=== PATIENT | female | born 1995 | race Caucasian/White ===

== ENCOUNTER 2016-10-17 15:18 | Emergency (ER) | payer OTHER ==
[~2016-10-17] VITALS: Ht 160 cm; Wt 74.0 kg
[2016-10-17 15:24] VITALS: BP 122/65; PULSE 80; RESP 16; TEMP 97.9; O2SAT 100
[2016-10-17] MEDS ORDERED: SODIUM CHLOR 0.9% 1000 ML INJ 1,000 ML IV SCH (15:44)
[2016-10-17] MEDS ORDERED: MORPHINE SULFATE 4 MG/ML INJ IV PUSH ONE (15:45)
[2016-10-17] MEDS ORDERED: ONDANSETRON HCL 4 MG/2 ML VIAL IVP ONE (15:45)
[2016-10-17] MEDS ORDERED: SODIUM CHLORIDE 0.9% FLUSH 5 ML FLUSH IVF PRN (15:45)
--- NOTE | 2016-10-17 15:47 | PD ---
HPI Chief Complaint: Abdominal Pain Time Seen by Provider: 15:44 Travel History International Travel<30 days: No Contact w/Intl Traveler<30days: No Traveled to known affect area: No History of Present Illness HPI 20-year-old female with history of no significant past medical issues, presents today with sudden onset of right lower quadrant abdominal pains or radiation to the right flank, nausea, vomiting starting at 2 PM. She denies any fevers, diarrhea, urinary symptoms, vaginal discharge, or any other symptoms. She states the pain is currently a 5 out of 10. Modifying Factors: None Associated Signs & Symptoms: Right lower quadrant and right flank pain, nausea and vomiting Risk Factors: None PFSH Past Medical History ?: Not LMP: 2 WEEKS Social History Alcohol Use: No Tobacco Use: No Substance Use: No Allergies-Medications (Allergen,Severity, Reaction): Coded Allergies: No Known Allergies (Unverified , 10/17/16) Reported Meds & Prescriptions Reported Meds & Active Scripts Active No Active Prescriptions or Reported Medications Review of Systems Except as stated in HPI: all other systems reviewed are Neg Physical Exam Narrative GENERAL: Well-nourished, well-developed young white female patient in mild distress. SKIN: Warm and dry. HEAD: Normocephalic. EYES: No scleral icterus. No injection or drainage. NECK: Supple, trachea midline. CARDIOVASCULAR: Regular rate and rhythm without murmurs, gallops, or rubs. RESPIRATORY: Breath sounds equal bilaterally. No accessory muscle use. GASTROINTESTINAL: Abdomen soft, right lower quadrant tenderness without guarding or rebound, nondistended. GENITOURINARY: Normal external genitalia without lesions or erythema. Vaginal vault without blood or drainage. Cervical os was closed without drainage. No cervical motion tenderness. Uterus nontender and nonenlarged. Bilateral adnexa nontender without masses. MUSCULOSKELETAL: No cyanosis, or edema. BACK: Nontender without obvious deformity. No CVA tenderness. Data Data Last Documented VS Vital Signs Date Time Temp Pulse Resp B/P Pulse Ox O2 Delivery O2 Flow Rate FiO2 10/17/16 18:28 73 20 90/65 100 10/17/16 15:24 97.9 Orders Complete Blood Count With Diff (10/17/16 15:44) Comprehensive Metabolic Panel (10/17/16 15:44) Urinalysis - C+S If Indicated (10/17/16 15:44) Ct Abd/Pel W/O Iv Contrast (10/17/16 15:44) Iv Access Insert/Monitor (10/17/16 15:44) Ecg Monitoring (10/17/16 15:44) Oximetry (10/17/16 15:44) Morphine Inj (Morphine Inj) (10/17/16 15:45) Ondansetron Inj (Zofran Inj) (10/17/16 15:45) Sodium Chlor 0.9% 1000 Ml Inj (Ns 1000 M (10/17/16 15:44) Sodium Chloride 0.9% Flush (Ns Flush) (10/17/16 15:45) Ed Urine Pregnancytest Poc (10/17/16 15:44) Ketorolac Inj (Toradol Inj) (10/17/16 18:00) Us Pelvis Comp Embroidery Machine Operator/Non-Preg (10/17/16 17:55) Gc And Chlamydia Pcr (10/17/16 18:21) Wet Prep Profile (10/17/16 18:21) Labs Laboratory Tests Test 10/17/16 10/17/16 16:10 18:20 White Blood Count 8.5 TH/MM3 Red Blood Count 4.55 MIL/MM3 Hemoglobin 13.2 GM/DL Hematocrit 39.3 % Mean Corpuscular Volume 86.4 FL Mean Corpuscular Hemoglobin 29.0 PG Mean Corpuscular Hemoglobin 33.5 % Concent Red Cell Distribution Width 11.4 % Platelet Count 317 TH/MM3 Mean Platelet Volume 7.8 FL Neutrophils (%) (Auto) 65.1 % Lymphocytes (%) (Auto) 26.4 % Monocytes (%) (Auto) 7.0 % Eosinophils (%) (Auto) 1.1 % Basophils (%) (Auto) 0.4 % Neutrophils # (Auto) 5.6 TH/MM3 Lymphocytes # (Auto) 2.2 TH/MM3 Monocytes # (Auto) 0.6 TH/MM3 Eosinophils # (Auto) 0.1 TH/MM3 Basophils # (Auto) 0.0 TH/MM3 CBC Comment DIFF FINAL Differential Comment Urine Color YELLOW Urine Turbidity CLOUDY Urine pH 6.0 Urine Specific [place] 1.031 Urine Protein NEG mg/dL Urine Glucose (UA) NEG mg/dL Urine Ketones NEG mg/dL Urine Occult Blood NEG Urine Nitrite NEG Urine Bilirubin NEGATIVE Urine Leukocyte Esterase NEGATIVE Urine RBC 0-3 /hpf Urine WBC 3-5 /hpf Urine Squamous Epithelial > 8 /hpf Cells Urine Bacteria FEW /hpf Microscopic Urinalysis Comment CULT NOT INDICATED Sodium Level 141 MEQ/L Potassium Level 3.6 MEQ/L Chloride Level 107 MEQ/L Carbon Dioxide Level 26.8 MEQ/L Anion Gap 7 MEQ/L Blood Urea Nitrogen 20 MG/DL Creatinine 0.78 MG/DL Estimat Glomerular Filtration 92 ML/MIN Rate Random Glucose 76 MG/DL Calcium Level 8.4 MG/DL Total Bilirubin 0.2 MG/DL Aspartate Amino Transf 6 U/L (AST/SGOT) Alanine Aminotransferase 18 U/L (ALT/SGPT) Alkaline Phosphatase 64 U/L Total Protein 6.9 GM/DL Albumin 3.6 GM/DL Clue Cells (Wet Prep) NONE SEEN Vaginal Trichomonas (Wet Prep) NONE SEEN Vaginal Yeast (Wet Prep) NONE SEEN MDM Medical Decision Making Medical Screen Exam Complete: Yes Emergency Medical Condition: Yes Medical Record Reviewed: Yes Interpretation(s) Laboratory Tests Test 10/17/16 16:10 Red Cell Distribution Width 11.4 % (11.6-17.2) Urine Turbidity CLOUDY (CLEAR) Urine Squamous Epithelial > 8 /hpf (0-5) Cells Urine Bacteria FEW /hpf (NONE) Blood Urea Nitrogen 20 MG/DL (7-18) Calcium Level 8.4 MG/DL (8.5-10.1) Aspartate Amino Transf 6 U/L (15-37) (AST/SGOT) Last 24 hours Impressions Abdomen/Pelvis CT 10/17/16 1544 Signed Impressions: Service Date/Time: Monday, October 17, 2016 17:15 - CONCLUSION: Normal kidneys ureters and bladder with no evidence of renal or ureteral calculi. Anteverted uterus right-sided. Normal left ovary. Otherwise negative examination Addison Montano MD Differential Diagnosis Right lower quadrant abdominal pains and right flank painsrenal colic versus pyelonephritis versus musculoskeletal versus appendicitis versus cholecystitis versus ovarian cyst versus ovarian torsion Narrative Course Lab work did not indicate any signs of sepsis and UA did not show significant signs of infection. CAT scan shows no signs of renal colic or any signs of acute intra-abdominal processes. However, patient is continuing to have fairly low right pelvic pains. A pelvic was done which did not show significant signs of CMT or discharge. Ultrasound was ordered for further evaluation of the right adnexa. Physician Communication Physician Communication Case is signed out to Dr. Gonzalez at 7 PM pending ultrasound. Disposition based on ultrasound. Diagnosis Primary Impression: Right lower quadrant abdominal pain Scripts No Active Prescriptions or Reported Meds Condition: Stable Zahida Weston MD Oct 17, 2016 15:47
[2016-10-17 16:23] VITALS: BP 105/68; PULSE 72; RESP 20; O2SAT 100
[2016-10-17 16:23] LABS: AUTOMATED NEUTROPHIL # 5.6 TH/MM3 (1.8-7.7); BASOPHIL % 0.4 % (0.0-2.0); EOSINOPHIL # 0.1 TH/MM3 (0-0.4); EOSINOPHIL % 1.1 % (0.0-4.0); HEMATOCRIT 39.3 % (35.0-46.0); HEMO FLAGS DIFF FINAL; LYMPH % 26.4 % (9.0-44.0); LYMPHOCYTE # 2.2 TH/MM3 (1.0-4.8); MEAN CELL VOLUME 86.4 FL (80.0-100.0); MEAN CORPUSCULAR HGB CONC 33.5 % (32.0-36.0); NEUT % 65.1 % (16.0-70.0); PLATELET COUNT 317 TH/MM3 (150-450); RED BLOOD COUNT 4.55 MIL/MM3 (4.00-5.30); RED CELL DISTRIBUTION WIDTH 11.4 % (11.6-17.2); WHITE BLOOD COUNT 8.5 TH/MM3 (4.0-11.0)
[2016-10-17 16:36] LABS: URINE COLOR YELLOW (YELLW/STRAW)
[2016-10-17 16:37] LABS: BLOOD, URINE NEG (NEG); GLUCOSE,URINE NEG (NEG); KETONE, URINE NEG (NEG); NITRITE,URINE NEG (NEG)
[2016-10-17 16:40] LABS: RBC, URINE 0-3 /hpf (0-3)
[2016-10-17 16:41] LABS: BACTERIA, URINE FEW /hpf; COMMENT (UR) CULT NOT INDICATED; CULTURE IF INDICATED CULT NOT INDICATED; SQUAMOUS EPITHELIAL CELL URINE > 8 /hpf (0-5)
[2016-10-17 17:14] VITALS: BP 116/58; PULSE 76; RESP 20; O2SAT 97
[2016-10-17 17:16] LABS: CHLORIDE 107 MEQ/L (98-107); POTASSIUM 3.6 MEQ/L (3.5-5.1); SODIUM (NA) 141 MEQ/L (136-145)
[2016-10-17 17:19] LABS: ANION GAP 7 MEQ/L (5-15); BICARBONATE 26.8 MEQ/L (21.0-32.0)
[2016-10-17 17:20] LABS: BLOOD UREA NITROGEN 20 MG/DL (7-18)
[2016-10-17 17:22] LABS: ALT (GPT) 18 U/L (10-53); AST (GOT) 6 U/L (15-37)
[2016-10-17 17:23] LABS: GLOMERULAR FILTRATION RATE 92 ML/MIN (>89)
[2016-10-17 17:24] LABS: TOTAL BILIRUBIN ADULT 0.2 MG/DL (0.2-1.0)
[2016-10-17 17:25] LABS: ALKALINE PHOSPHATASE 64 U/L (45-117)
--- NOTE | 2016-10-17 17:44 | RADHPO ---
EXAM DATE/TIME: 10/17/2016 17:15 [facility] COMPARISON: No previous studies available for comparison. INDICATIONS : Right lower quadrant pain radiating into the back. ORAL CONTRAST: No oral contrast ingested. RADIATION DOSE: 14.68 CTDIvol (mGy) MEDICAL HISTORY : None SURGICAL HISTORY : None. ENCOUNTER: Initial ACUITY: 1 day PAIN SCALE: 5/10 LOCATION: Right lower quadrant TECHNIQUE: Volumetric scanning of the abdomen and pelvis was performed. Using automated exposure control and ad justment of the mA and/or kV according to patient size, radiation dose was kept as low as reasonably achievable to obtain optimal diagnostic quality images. FINDINGS: LOWER LUNGS: The visualized lower lungs are clear. LIVER: Homogeneous density without lesion. There is no dilation of the biliary tree. No calcified gallston es. Gallbladder seen as a luminal structure without wall thickening There SPLEEN: Normal size without lesion. PANCREAS: Within normal limits. KIDNEYS: Normal in size and shape. There is no mass, stone, or hydronephrosis. ADRENAL GLANDS: Within normal limits. VASCULAR: There is no aortic aneurysm. BOWEL/MESENTERY: The stomach, small bowel, and colon demonstrate no acute abnormality. There is no free intraperitone al air or fluid. ABDOMINAL WALL: Within normal limits. RETROPERITONEUM: There is no lymphadenopathy. BLADDER: No wall thickening or mass. REPRODUCTIVE: Uterus is anteverted to the right. Left ovary visualized and normal. INGUINAL: There is no lymphadenopathy or hernia. MUSCULOSKELETAL: Within normal limits for patient age. CONCLUSION: Normal kidneys ureters and bladder with no evidence of renal or ureteral calculi. Anteverted uterus r ight-sided. Normal left ovary. Otherwise negative examination Addison Montano MD on October 17, 2016 at 17:39 Board Certified Radiologist. This report was verified electronically.
[2016-10-17] MEDS ORDERED: KETOROLAC TROMETHAMINE 30 MG/ML (IVP) VIAL IV PUSH ONE (18:00)
[2016-10-17 18:28] VITALS: BP 90/65; PULSE 73; RESP 20; O2SAT 100
--- NOTE | 2016-10-17 19:15 | PD ---
Physical Exam Date Seen by Provider: Oct 17, 2016 Time Seen by Provider: 19:15 Narrative accepted in transfer of care from Dr Weston GENERAL: Well-developed and nourished female in no acute distress no respiratory distress CARDIOVASCULAR: Regular rate and rhythm without murmurs, gallops, or rubs. RESPIRATORY: Breath sounds equal bilaterally. No accessory muscle use. GASTROINTESTINAL: Abdomen soft, mild tenderness to palpation no guarding or rebound, nondistended. Data Data Last Documented VS Vital Signs Date Time Temp Pulse Resp B/P Pulse Ox O2 Delivery O2 Flow Rate FiO2 10/17/16 19:13 18 10/17/16 18:28 73 90/65 100 10/17/16 15:24 97.9 Orders Complete Blood Count With Diff (10/17/16 15:44) Comprehensive Metabolic Panel (10/17/16 15:44) Urinalysis - C+S If Indicated (10/17/16 15:44) Ct Abd/Pel W/O Iv Contrast (10/17/16 15:44) Iv Access Insert/Monitor (10/17/16 15:44) Ecg Monitoring (10/17/16 15:44) Oximetry (10/17/16 15:44) Morphine Inj (Morphine Inj) (10/17/16 15:45) Ondansetron Inj (Zofran Inj) (10/17/16 15:45) Sodium Chlor 0.9% 1000 Ml Inj (Ns 1000 M (10/17/16 15:44) Sodium Chloride 0.9% Flush (Ns Flush) (10/17/16 15:45) Ed Urine Pregnancytest Poc (10/17/16 15:44) Ketorolac Inj (Toradol Inj) (10/17/16 18:00) Gc And Chlamydia Pcr (10/17/16 18:21) Wet Prep Profile (10/17/16 18:21) Us Pelvis Comp W Doppler (10/17/16 17:55) Ns (Bolus) Inj (10/17/16 19:45) Labs Laboratory Tests Test 10/17/16 10/17/16 16:10 18:20 White Blood Count 8.5 TH/MM3 Red Blood Count 4.55 MIL/MM3 Hemoglobin 13.2 GM/DL Hematocrit 39.3 % Mean Corpuscular Volume 86.4 FL Mean Corpuscular Hemoglobin 29.0 PG Mean Corpuscular Hemoglobin 33.5 % Concent Red Cell Distribution Width 11.4 % Platelet Count 317 TH/MM3 Mean Platelet Volume 7.8 FL Neutrophils (%) (Auto) 65.1 % Lymphocytes (%) (Auto) 26.4 % Monocytes (%) (Auto) 7.0 % Eosinophils (%) (Auto) 1.1 % Basophils (%) (Auto) 0.4 % Neutrophils # (Auto) 5.6 TH/MM3 Lymphocytes # (Auto) 2.2 TH/MM3 Monocytes # (Auto) 0.6 TH/MM3 Eosinophils # (Auto) 0.1 TH/MM3 Basophils # (Auto) 0.0 TH/MM3 CBC Comment DIFF FINAL Differential Comment Urine Color YELLOW Urine Turbidity CLOUDY Urine pH 6.0 Urine Specific [place] 1.031 Urine Protein NEG mg/dL Urine Glucose (UA) NEG mg/dL Urine Ketones NEG mg/dL Urine Occult Blood NEG Urine Nitrite NEG Urine Bilirubin NEGATIVE Urine Leukocyte Esterase NEGATIVE Urine RBC 0-3 /hpf Urine WBC 3-5 /hpf Urine Squamous Epithelial > 8 /hpf Cells Urine Bacteria FEW /hpf Microscopic Urinalysis Comment CULT NOT INDICATED Sodium Level 141 MEQ/L Potassium Level 3.6 MEQ/L Chloride Level 107 MEQ/L Carbon Dioxide Level 26.8 MEQ/L Anion Gap 7 MEQ/L Blood Urea Nitrogen 20 MG/DL Creatinine 0.78 MG/DL Estimat Glomerular Filtration 92 ML/MIN Rate Random Glucose 76 MG/DL Calcium Level 8.4 MG/DL Total Bilirubin 0.2 MG/DL Aspartate Amino Transf 6 U/L (AST/SGOT) Alanine Aminotransferase 18 U/L (ALT/SGPT) Alkaline Phosphatase 64 U/L Total Protein 6.9 GM/DL Albumin 3.6 GM/DL Clue Cells (Wet Prep) NONE SEEN Vaginal Trichomonas (Wet Prep) NONE SEEN Vaginal Yeast (Wet Prep) NONE SEEN MDM Medical Record Reviewed: Yes Supervised Visit with FABIÁN: No Interpretation(s) Laboratory Tests Test 10/17/16 10/17/16 16:10 18:20 White Blood Count 8.5 TH/MM3 Red Blood Count 4.55 MIL/MM3 Hemoglobin 13.2 GM/DL Hematocrit 39.3 % Mean Corpuscular Volume 86.4 FL Mean Corpuscular Hemoglobin 29.0 PG Mean Corpuscular Hemoglobin 33.5 % Concent Red Cell Distribution Width 11.4 % Platelet Count 317 TH/MM3 Mean Platelet Volume 7.8 FL Neutrophils (%) (Auto) 65.1 % Lymphocytes (%) (Auto) 26.4 % Monocytes (%) (Auto) 7.0 % Eosinophils (%) (Auto) 1.1 % Basophils (%) (Auto) 0.4 % Neutrophils # (Auto) 5.6 TH/MM3 Lymphocytes # (Auto) 2.2 TH/MM3 Monocytes # (Auto) 0.6 TH/MM3 Eosinophils # (Auto) 0.1 TH/MM3 Basophils # (Auto) 0.0 TH/MM3 CBC Comment DIFF FINAL Differential Comment Urine Color YELLOW Urine Turbidity CLOUDY Urine pH 6.0 Urine Specific [place] 1.031 Urine Protein NEG mg/dL Urine Glucose (UA) NEG mg/dL Urine Ketones NEG mg/dL Urine Occult Blood NEG Urine Nitrite NEG Urine Bilirubin NEGATIVE Urine Leukocyte Esterase NEGATIVE Urine RBC 0-3 /hpf Urine WBC 3-5 /hpf Urine Squamous Epithelial > 8 /hpf Cells Urine Bacteria FEW /hpf Microscopic Urinalysis Comment CULT NOT INDICATED Sodium Level 141 MEQ/L Potassium Level 3.6 MEQ/L Chloride Level 107 MEQ/L Carbon Dioxide Level 26.8 MEQ/L Anion Gap 7 MEQ/L Blood Urea Nitrogen 20 MG/DL Creatinine 0.78 MG/DL Estimat Glomerular Filtration 92 ML/MIN Rate Random Glucose 76 MG/DL Calcium Level 8.4 MG/DL Total Bilirubin 0.2 MG/DL Aspartate Amino Transf 6 U/L (AST/SGOT) Alanine Aminotransferase 18 U/L (ALT/SGPT) Alkaline Phosphatase 64 U/L Total Protein 6.9 GM/DL Albumin 3.6 GM/DL Clue Cells (Wet Prep) NONE SEEN Vaginal Trichomonas (Wet Prep) NONE SEEN Vaginal Yeast (Wet Prep) NONE SEEN Last Impressions Pelvis Ultrasound 10/17/16 1755 Signed Impressions: Service Date/Time: Monday, October 17, 2016 18:38 - CONCLUSION: Normal examination. Zaheer Tabor Jr., MD Abdomen/Pelvis CT 10/17/16 1544 Signed Impressions: Service Date/Time: Monday, October 17, 2016 17:15 - CONCLUSION: Normal kidneys ureters and bladder with no evidence of renal or ureteral calculi. Anteverted uterus right-sided. Normal left ovary. Otherwise negative examination Addison Montano MD Differential Diagnosis accepted in transfer of care from Dr Weston; please refer to her dictation Narrative Course accepted in transfer of care from Dr Weston 7:35 PM ultrasound of pelvis ovaries with Doppler study found to be normal imaging study discussed with radiology and reports good flow to both ovaries. At this point in time patient's labs are normal CT abdomen and pelvis reveals no acute abnormality and is read as normal and ultrasound of the pelvis with attention to the right hemipelvis and right ovary is found to be normal. Patient is 2 weeks status post last. Suspect possible mittelschmerz component to right lower quadrant pelvic pain. Patient is clinically improved after receiving Toradol and 1 dose of morphine in the emergency department patient is stable for outpatient management and encouraged to follow closely with her systems architecture analyst. Patient will be given prescription for Anaprox DS. Patient noted to have some decrease in blood pressure after receiving narcotics IV will be given a liter of normal saline and encouraged to take oral hydration prior to discharge. Diagnosis Primary Impression: Right lower quadrant abdominal pain Additional Impression: Mittelschmerz Referrals: Health Navigator call for appointment Patient Instructions: General Instructions Additional Instruction: Increase fluid hydration Follow-up with systems architecture analyst No work times one day Monitor temperature and take as needed acetaminophen/Tylenol every 4 hours for fever 100.4F or greater Take Anaprox DS as prescribed as needed for pain associated with inflammation/ pelvic pain Return to the emergency department for any concerns or change in condition Med/Other Pt SpecificInfo: Prescription(s) given Scripts Naproxen Sodium DS (Anaprox DS)550 Mg [id number] Mg PO BID PRN (PAIN GREATER THAN 6 ) #10 TAB Ref 0 Prov:Katie Gonzalez MD 10/17/16 Disposition: 01 DISCHARGE HOME Condition: Stable Katie Gonzlaez MD Oct 17, 2016 19:15
--- NOTE | 2016-10-17 19:16 | RADHPO ---
EXAM DATE/TIME: 10/17/2016 18:38 [facility] COMPARISON: No previous studies available for comparison. INDICATIONS : Pelvic pain. MEDICAL HISTORY : Right pelvic and flank pain. Nausea/vomiting. SURGICAL HISTORY : None. ENCOUNTER: Initial ACUITY: 1 day PAIN SCORE: 8/10 LOCATION: Bilateral pelvis MEASUREMENTS: UTERUS: 8.2 x 6.2 x 3.2 cm ENDOMETRIAL STRIPE: 13 mm RIGHT OVARY: 2.5 x 2.4 x 2.9 cm LEFT OVARY: 4.3 x 2.9 x 2.4 cm FINDINGS: UTERUS: The myometrium has homogeneous echotexture without mass. RIGHT OVARY: Ovary contains no mass or significant cystic lesion. LEFT OVARY: Ovary contains no mass or significant cystic lesion. MISCELLANEOUS: No free fluid. CONCLUSION: Normal examination. Zaheer Tabor Jr., MD on October 17, 2016 at 19:13 Board Certified Radiologist. This report was verified electronically.
[2016-10-17] MEDS ORDERED: NAPR550 PO (19:39)
[2016-10-17] MEDS ORDERED: SODIUM CHLOR 0.9% 1000 ML INJ 1,000 ML IV ONE (19:45)
[2016-10-17 20:33] VITALS: BP 102/65; PULSE 83; RESP 18; O2SAT 98
[2016-10-18 03:50] LABS: CHLAMYDIA PCR NOT DETECTED (NOT DETECT); NEISSERIA PCR NOT DETECTED (NOT DETECT)
== END 2016-10-17 20:44 | disposition home or self-care (01) ==
LOC: PHED 15:18
DX: N94.0 Mittelschmerz (principal)
CPT/HCPCS: 74176; 76856; 80053; 81001; 84703; 85025; 87210; 87491; 87591; 93975; 96361; 96374; 96375; 99284; J1885; J2270; J2405; J7030

== ENCOUNTER 2016-10-28 04:25 | Emergency (ER) | payer OTHER ==
[~2016-10-28] VITALS: Ht 160 cm; Wt 72.9 kg
[~2016-10-28 04:25] MED LIST: NAPR550 PO
[2016-10-28 04:31] VITALS: BP 115/79; PULSE 98; RESP 18; TEMP 97.6; O2SAT 98
[2016-10-28] MEDS ORDERED: SODIUM CHLOR 0.9% 1000 ML INJ 1,000 ML IV SCH (04:50)
[2016-10-28 05:00] VITALS: RESP 18; O2SAT 99
[2016-10-28] MEDS ORDERED: SODIUM CHLOR 0.9% 1000 ML INJ 1,000 ML IV ONE (05:00)
[2016-10-28] MEDS ORDERED: PANTOPRAZOLE SODIUM 40 MG VIAL IVP ONE (05:00)
[2016-10-28] MEDS ORDERED: ONDANSETRON HCL 4 MG/2 ML VIAL IVP ONE (05:00)
[2016-10-28] MEDS ORDERED: SODIUM CHLORIDE 0.9% FLUSH 5 ML FLUSH IVF PRN (05:00)
[2016-10-28 05:11] LABS: BLOOD, URINE NEG (NEG); GLUCOSE,URINE NEG (NEG); KETONE, URINE NEG (NEG); NITRITE,URINE NEG (NEG)
[2016-10-28 05:15] LABS: AUTOMATED NEUTROPHIL # 5.7 TH/MM3 (1.8-7.7); BASOPHIL # 0.1 TH/MM3 (0-0.2); EOSINOPHIL % 0.3 % (0.0-4.0); HEMATOCRIT 38.9 % (35.0-46.0); LYMPH % 23.6 % (9.0-44.0); LYMPHOCYTE # 1.9 TH/MM3 (1.0-4.8); MEAN CELL VOLUME 85.1 FL (80.0-100.0); MEAN CORPUSCULAR HEMOGLOBIN 28.6 PG (27.0-34.0); MEAN CORPUSCULAR HGB CONC 33.6 % (32.0-36.0); MONO % 4.5 % (0.0-8.0); NEUT % 70.6 % (16.0-70.0); PLATELET COUNT 281 TH/MM3 (150-450); RED BLOOD COUNT 4.58 MIL/MM3 (4.00-5.30); RED CELL DISTRIBUTION WIDTH 11.5 % (11.6-17.2); WHITE BLOOD COUNT 8.1 TH/MM3 (4.0-11.0)
[2016-10-28] MEDS ORDERED: ONDANSETRON HCL 4 MG/2 ML VIAL IV PUSH ONE (05:15)
[2016-10-28 05:16] LABS: HEMO FLAGS DIFF FINAL
[2016-10-28 05:18] LABS: BACTERIA, URINE RARE /hpf; COMMENT (UR) CULT NOT INDICATED; CULTURE IF INDICATED CULT NOT INDICATED; RBC, URINE 0-2 /hpf (0-3); SQUAMOUS EPITHELIAL CELL URINE > 8 /hpf (0-5); URINE COLOR YELLOW (YELLW/STRAW); WBC, URINE 0-2 /hpf (0-5)
[2016-10-28 05:19] LABS: CHLORIDE 107 MEQ/L (98-107); POTASSIUM 3.6 MEQ/L (3.5-5.1); SODIUM (NA) 142 MEQ/L (136-145)
[2016-10-28 05:22] LABS: ANION GAP 9 MEQ/L (5-15); BICARBONATE 25.6 MEQ/L (21.0-32.0)
[2016-10-28 05:23] LABS: BLOOD UREA NITROGEN 13 MG/DL (7-18); MAGNESIUM 2.2 MG/DL (1.5-2.5)
[2016-10-28 05:25] LABS: ALT (GPT) 22 U/L (10-53); AST (GOT) 16 U/L (15-37); GLOMERULAR FILTRATION RATE 97 ML/MIN (>89)
[2016-10-28 05:27] LABS: TOTAL BILIRUBIN ADULT 0.6 MG/DL (0.2-1.0)
[2016-10-28 05:28] LABS: ALKALINE PHOSPHATASE 60 U/L (45-117)
[2016-10-28] MEDS ORDERED: METOCLOPRAMIDE HCL 10 MG/2 ML VIAL IV PUSH ONE (05:30)
[2016-10-28] MEDS ORDERED: MORPHINE SULFATE 4 MG/ML INJ IV PUSH ONE (05:30)
--- NOTE | 2016-10-28 05:36 | PD ---
HPI Chief Complaint: Alcohol/Drug Intoxication Time Seen by Provider: 04:50 Travel History International Travel<30 days: No Contact w/Intl Traveler<30days: No Traveled to known affect area: No History of Present Illness HPI 21 year-old female presents to the emergency department by private transportation for complaint of vomiting with epigastric pain. Patient reportedly drank alcohol last evening and access for her she typically does not drink alcoholic beverages. Patient subsequently drank water to try to dilute the alcohol and went to bed and awakened just prior to arrival to the emergency department with multiple episodes of vomiting. Patient vomited stomach contents of food. No report of bilious emesis, hematemesis, or coffee-ground emesis, and no melena or hematochezia but some loose stools. Patient also with epigastric discomfort. No prior history of peptic ulcer disease gastritis pancreatitis and no gallbladder disease. Patient rates discomfort 9/10 in intensity. Patient is taking no medications prior to arrival to the emergency department. Patient takes no medications on a regular basis. Patient is reportedly otherwise in good health. No abdominal surgeries. Last menstrual period was 1 month ago normal for her and patient denies . [facility] Past Medical History Narrative Medical Negative medical history and surgical history occasional alcohol use no tobacco use nursing notes reviewed Medical History: Denies Significant Hx Diminished Hearing: No Tetanus Vaccination: Unknown Influenza Vaccination: No ?: Not LMP: 10/07/16 Past Surgical History Surgical History: No Previous Surgery Social History Alcohol Use: Yes (SOCIALLY) Tobacco Use: No Substance Use: No Allergies-Medications (Allergen,Severity, Reaction): Coded Allergies: No Known Allergies (Unverified , 10/29/16) Reported Meds & Prescriptions Reported Meds & Active Scripts Active Phenergan (Promethazine HCl) 25 Mg Tab 25 Mg PO Q6H PRN Zofran Odt (Ondansetron Odt) 4 Mg Tab 4 Mg SL Q6HR PRN Carafate Liq (Sucralfate) 1 Gm/10 Ml Susp 1 Gm PO QID 2 Days on empty stomach Anaprox DS (Naproxen Sodium) 550 Mg Tab 550 Mg PO BID PRN Review of Systems Except as stated in HPI: all other systems reviewed are Neg General / Constitutional: No: Fever, Chills HENT: No: Congestion Cardiovascular: No: Chest Pain or Discomfort Respiratory: No: Shortness of Breath Gastrointestinal: Positive: Nausea, Vomiting, Diarrhea, Abdominal Pain, No: Hematemesis, Hematochezia, Loss of Appetite Genitourinary: No: Urgency, Frequency, Dysuria Musculoskeletal: No: Myalgias, Arthralgias Skin: No Rash Neurologic: No: Weakness Psychiatric: Positive: Anxiety Hematologic/Lymphatic: No: Easy Bruising Physical Exam Narrative GENERAL: Well-developed well-nourished female in no respiratory distress appears mildly anxious SKIN: Warm and dry. HEAD: Normocephalic. EYES: No scleral icterus. No injection or drainage. NECK: Supple, trachea midline. No JVD or lymphadenopathy. CARDIOVASCULAR: Regular rate and rhythm without murmurs, gallops, or rubs. RESPIRATORY: Breath sounds equal bilaterally. No accessory muscle use. GASTROINTESTINAL: Abdomen soft, mild epigastric tenderness to direct palpation without guarding or rebound, nondistended. MUSCULOSKELETAL: No cyanosis, or edema. BACK: Nontender without obvious deformity. No CVA tenderness. Data Data Last Documented VS Orders Complete Blood Count With Diff (10/28/16 04:50) Comprehensive Metabolic Panel (10/28/16 04:50) Lipase (10/28/16 04:50) Urinalysis - C+S If Indicated (10/28/16 04:50) Iv Access Insert/Monitor (10/28/16 04:50) Ecg Monitoring (10/28/16 04:50) Oximetry (10/28/16 04:50) Ondansetron Inj (Zofran Inj) (10/28/16 05:00) Pantoprazole Inj (Protonix Inj) (10/28/16 05:00) Sodium Chlor 0.9% 1000 Ml Inj (Ns 1000 M (10/28/16 04:50) Sodium Chloride 0.9% Flush (Ns Flush) (10/28/16 05:00) Chest, Single Ap (10/28/16 04:50) Ed Urine Pregnancytest Poc (10/28/16 04:50) Alcohol (Ethanol) (10/28/16 04:50) Sodium Chlor 0.9% 1000 Ml Inj (Ns 1000 M (10/28/16 05:00) Magnesium (Mg) (10/28/16 04:50) Ondansetron Inj (Zofran Inj) (10/28/16 05:15) Metoclopramide Inj (Reglan Inj) (10/28/16 05:30) Morphine Inj (Morphine Inj) (10/28/16 05:30) Sucralfate Liq (Carafate Liq) (10/28/16 06:45) Labs Laboratory Tests Test 10/28/16 05:00 White Blood Count 8.1 TH/MM3 Red Blood Count 4.58 MIL/MM3 Hemoglobin 13.1 GM/DL Hematocrit 38.9 % Mean Corpuscular Volume 85.1 FL Mean Corpuscular Hemoglobin 28.6 PG Mean Corpuscular Hemoglobin 33.6 % Concent Red Cell Distribution Width 11.5 % Platelet Count 281 TH/MM3 Mean Platelet Volume 8.3 FL Neutrophils (%) (Auto) 70.6 % Lymphocytes (%) (Auto) 23.6 % Monocytes (%) (Auto) 4.5 % Eosinophils (%) (Auto) 0.3 % Basophils (%) (Auto) 1.0 % Neutrophils # (Auto) 5.7 TH/MM3 Lymphocytes # (Auto) 1.9 TH/MM3 Monocytes # (Auto) 0.4 TH/MM3 Eosinophils # (Auto) 0.0 TH/MM3 Basophils # (Auto) 0.1 TH/MM3 CBC Comment DIFF FINAL Differential Comment Urine Color YELLOW Urine Turbidity CLEAR Urine pH 7.0 Urine Specific [place] 1.026 Urine Protein TRACE mg/dL Urine Glucose (UA) NEG mg/dL Urine Ketones NEG mg/dL Urine Occult Blood NEG Urine Nitrite NEG Urine Bilirubin NEG Urine Leukocyte Esterase NEG Urine RBC 0-2 /hpf Urine WBC 0-2 /hpf Urine Squamous Epithelial > 8 /hpf Cells Urine Bacteria RARE /hpf Microscopic Urinalysis Comment CULT NOT INDICATED Sodium Level 142 MEQ/L Potassium Level 3.6 MEQ/L Chloride Level 107 MEQ/L Carbon Dioxide Level 25.6 MEQ/L Anion Gap 9 MEQ/L Blood Urea Nitrogen 13 MG/DL Creatinine 0.74 MG/DL Estimat Glomerular Filtration 97 ML/MIN Rate Random Glucose 88 MG/DL Calcium Level 8.8 MG/DL Magnesium Level 2.2 MG/DL Total Bilirubin 0.6 MG/DL Aspartate Amino Transf 16 U/L (AST/SGOT) Alanine Aminotransferase 22 U/L (ALT/SGPT) Alkaline Phosphatase 60 U/L Total Protein 7.6 GM/DL Albumin 3.8 GM/DL Lipase 145 U/L Ethyl Alcohol Level LESS THAN 3 MG/DL MDM Medical Decision Making Medical Screen Exam Complete: Yes Emergency Medical Condition: Yes Medical Record Reviewed: Yes Interpretation(s) CBC & BMP Diagram 10/28/16 05:00 [id number] hCG: Negative Urinalysis normal Serum alcohol less than 3, not elevated Last Impressions Chest X-Ray 10/28/16 0450 Signed Impressions: Service Date/Time: Friday, October 28, 2016 05:14 - CONCLUSION: No acute cardiopulmonary abnormality is identified. Michael Perry MD Differential Diagnosis Vomiting, gastroenteritis, peptic ulcer disease, alcoholic gastritis, electrolyte disturbance, dehydration Narrative Course IV access obtained specimens collected and sent for resulting patient administered normal saline bolus 1 L as well as Zofran 4 mg IV and Protonix 40 mg IV Patient with ongoing nausea additional dose of Zofran 4 mg IV administered and second liter of normal saline administered CBC complete metabolic panel lipase magnesium urinalysis all within normal range ; [id number] hCG negative; chest x-ray reveals no subdiaphragmatic free air or Patient continues to complain of nausea Reglan 10 mg IV administered also morphine sulfate 2 mg IV administered At 6:40 AM patient is clinically improved and stable for outpatient management continues complaining of some mild epigastric tenderness therefore it Carafate 1 g administered Diagnosis Primary Impression: Gastritis Qualified Code: K29.00 - Acute gastritis without hemorrhage, unspecified gastritis type Additional Impression: Vomiting Qualified Code: R11.2 - Non-intractable vomiting with nausea, unspecified vomiting type Referrals: Primary Care Physician 2 days Patient Instructions: General Instructions, Narcotic given in the ED Additional Instructions: Follow a clear liquid diet for next 12-24 hours advance as tolerated to bland/ Kym diet then regular diet Increase fluid hydration Take medication as prescribed as needed for nausea and/or vomiting Monitor temperature every 4 hours with thermometer take acetaminophen as needed for fever 100.4F or greater Avoid nonsteroidal anti-inflammatory medications such as ibuprofen/Advil/Motrin or Aleve/Naprosyn/naproxen 24 hours Return to the emergency for for any concerns or change in condition Med/Other Pt SpecificInfo: Prescription(s) given Scripts Promethazine (Phenergan)25 Mg Tab25 Mg PO Q6H PRN (Nausea/Vomiting) #7 TAB Ref 0 Prov:Katie Gonzalez MD 10/28/16 Ondansetron Odt (Zofran Odt)4 Mg Tab4 Mg SL Q6HR PRN (Nausea/Vomiting) #10 TAB Ref 0 Prov:Katie Gonzalez MD 10/28/16 Sucralfate Liq (Carafate Liq)1 Gm/10 Ml Susp1 Gm PO QID 2 Days Ref 0 on empty stomach Prov:Katie Gonzalez MD 10/28/16 Disposition: DISCHARGE HOME Condition: Stable Katie Gonzalez MD Oct 28, 2016 05:36 Promethazine (Phenergan)25 Mg Tab25 Mg PO Q6H PRN (Nausea/Vomiting) #7 TAB Ref 0 Prov:Katie Gonzalez MD 10/28/16 Ondansetron Odt (Zofran Odt)4 Mg Tab4 Mg SL Q6HR PRN (Nausea/Vomiting) #10 TAB Ref 0 Prov:Katie Gonzalez MD 10/28/16 Sucralfate Liq (Carafate Liq)1 Gm/10 Ml Susp1 Gm PO QID 2 Days Ref 0 on empty stomach Prov:Katie Gonzalez MD 10/28/16 Disposition: DISCHARGE HOME Condition: Stable Katie Gonzalez MD Oct 28, 2016 05:36
--- NOTE | 2016-10-28 05:56 | RADHPO ---
EXAM DATE/TIME: 10/28/2016 05:14 [place] COMPARISON: No previous studies available for comparison. INDICATIONS : Shortness of breath. MEDICAL HISTORY : None. SURGICAL HISTORY : None. ENCOUNTER: Initial ACUITY: 1 day PAIN SCORE: 8/10 LOCATION: Bilateral chest FINDINGS: Portable AP view of the chest demonstrates a normal-sized cardiac silhouette. No effusion, consolidat ion, or pneumothorax is visualized. The bones and soft tissues demonstrate no acute abnormality. CONCLUSION: No acute cardiopulmonary abnormality is identified. Michael Perry MD on October 28, 2016 at 5:55 Board Certified Radiologist. This report was verified electronically.
[2016-10-28 06:28] VITALS: RESP 18
[2016-10-28] MEDS ORDERED: ZOFR4TAB3 SL (06:41)
[2016-10-28] MEDS ORDERED: CARA1SUS3 PO (06:41)
[2016-10-28] MEDS ORDERED: PROM25TA5 PO (06:41)
[2016-10-28] MEDS ORDERED: SUCRALFATE 1 GM/10 ML CUP PO ONE (06:45)
[2016-10-28 06:56] VITALS: BP 96/54
== END 2016-10-28 07:02 | disposition home or self-care (01) ==
LOC: PHED 04:25
DX: K29.00 Acute gastritis without bleeding (principal); R11.2 Nausea with vomiting, unspecified
CPT/HCPCS: 71010; 80053; 80320; 81001; 83690; 83735; 84703; 85025; 96361; 96374; 96375; 99284; C9113; J2270; J2405; J2765; J7030